=== PATIENT | male | born 1955 | race Caucasian/White ===

== ENCOUNTER 2017-02-28 14:42 | Inpatient (IN) | payer MEDICARE, OTHER ==
[2017-02-28 16:11] LABS: Hematocrit 36 % (42-52); Hemoglobin 12.1 g/dl (14.0-18.0); Mean Corpuscular HGB Conc 34 g/dl (31-36); Mean Corpuscular Hemoglobin 31 pg (27-31); Mean Corpuscular Volume 91 fL (80-94); Mean Platelet Volume 8 um3 (7.4-10.4); Red Blood Count 3.98 10^6/ul (4.0-5.4); Red Cell Distribution Width 15 % (10.5-15)
[2017-02-28 16:23] LABS: ALT 22 U/L (7-52); AST 18 U/L (13-39); Albumin 4.1 g/dL (3.2-5.2); Alkaline Phosphatase 67 U/L (34-104); Anion Gap 6 mmol/L (2-11); BUN/Creatinine Ratio 16.2 (8-20); Blood Urea Nitrogen 37 mg/dL (6-24); CO2 Carbon Dioxide 26 mmol/L (22-32); Calcium 9.5 mg/dL (8.6-10.3); Chloride 107 mmol/L (101-111); Creatine Kinase 167 U/L (10-223); EGFR African American 37.6 (>60); EGFR Non-African American 29.2 (>60); Glucose 137 mg/dL (70-100); Potassium 4.8 mmol/L (3.5-5.0); Sodium 139 mmol/L (133-145); Total Protein 7.1 g/dL (6.4-8.9)
[2017-02-28 16:49] LABS: Acetaminophen < 15 mcg/mL; Alcohol < 10 mg/dL (<10); Salicylate < 2.50 mg/dL (<30)
[2017-02-28 17:05] LABS: TSH (Thyroid Stimulating Horm) 0.21 mcIU/mL (0.34-5.60)
[2017-02-28] MEDS ORDERED: HYDROcodone/ACETAMIN 5-325 MG* 1 TAB PO ONE (17:12)
[2017-02-28] MEDS ORDERED: Lithium Carbonate TAB* 300 MG PO SCH (21:00)
[2017-02-28 23:02] LABS: Lithium < 0.10 mmol/L (0.6-1.2)
--- NOTE | 2017-03-01 02:16 | ED ---
Lara Steele Edward, scribed for Mary Watkins MD on 02/28/17 at 1459 . Psychiatric Complaint - HPI Summary HPI Summary: 61 y/o male brought in by the police s/p episode earlier today of homicidal intent. Pt states this episode was a "big misunderstanding." Pt was calling into the pain clinic at [facility] to renew his pain medications. Pt states his sister came in with some dogs and yelled he would shoot you in the head to the dogs while still on the phone with the pain clinic. Pt repeatedly states that he was talking to his dogs and not to the pain clinic. Pt denies overdose attempt, SI or HI now. The pt c/o chronic jovany in the legs, hip, neck and back rated 7-8/ 10. Sx hip surgery. Pt takes Vicadin and Hydrocodone for his pain. - History Of Current Complaint Chief Complaint: EDMentalHealth Hx Obtained From: Patient Onset/Duration: Lasting Hours, Resolved Aggravating Factor(s): Nothing Alleviating Factor(s): Nothing Has Suicidal: Denies: Thoughts Has Homicidal: Denies: Thoughts - Allergies/Home Medications Allergies/Adverse Reactions: Allergies Allergy/AdvReac Type Severity Reaction Status Date / Time No Known Allergies Allergy Verified 01/18/17 13:25 Home Medications: Home Medications Amlodipine Besylate 10 mg PO DAILY 02/28/17 [History Confirmed 02/28/17] Hydrocodone-Acetaminophen [Lorcet Plus 7.5-325 mg] 1 tab PO Q4HR PRN 02/28/17 [ History Confirmed 02/28/17] Hydrocodone/Acetamin 10/325(NF [[place] 10/325 (NF)] 1 tab PO Q4HR PRN 02/28/17 [ History Confirmed 02/28/17] Lisinopril 10 mg PO BEDTIME 02/28/17 [History Confirmed 02/28/17] Purcell Carbonate 600 mg PO DAILY 02/28/17 [History Confirmed 02/28/17] Purcell Carbonate TAB* 300 mg PO BEDTIME 02/28/17 [History Confirmed 02/28/17] Meloxicam(NF) [Mobic(NF)] 7.5 mg PO BID 02/28/17 [History Confirmed 02/28/17] PMH/Surg Hx/FS Hx/Imm Hx Previously Healthy: No Endocrine/Hematology History: Reports: Hx Diabetes - borderline diet Respiratory History: Reports: Hx Pneumonia - [facility] November 2013 Musculoskeletal History: Reports: Hx Arthritis - left hip, Other Musculoskeletal History - diskectomy neck/fusion and bone taken from left hip Sensory History: Reports: Hx Contacts or Glasses Opthamlomology History: Reports: Hx Contacts or Glasses Psychiatric History: Reports: Hx Inpatient Treatment - 28 day, Hx Bipolar Disorder - lithium, Other Psychiatric Issues/Disorders - hx alcoholism - Surgical History Surgery Procedure, Year, and Place: CERVICAL NECK FUSION Infectious Disease History: Yes Infectious Disease History: Denies: Traveled Outside the [place] in Last 30 Days - Social History Alcohol Use: None Alcohol Amount: Quit 25 years ago Substance Use Type: Reports: None Substance Use Comment - Amount & Last Used: hydrocodone Smoking Status (MU): Former Smoker Type: Cigarettes Have You Smoked in the Last Year: No Review of Systems Constitutional: Negative Eyes: Negative ENT: Negative Cardiovascular: Negative Respiratory: Negative Gastrointestinal: Negative Genitourinary: Negative Positive: Arthralgia - chronic pain @ hip, legs, neck and back Skin: Negative Neurological: Negative Psychological: Normal All Other Systems Reviewed And Are Negative: Yes Physical Exam - Summary Physical Exam Summary: Appearance: Well-appearing, no pain distress, Well-nourished Skin: Warm, color reflects adequate perfusion Head: Normal Head/Face Eyes: Conjunctiva clear ENT: Normal Neck: Supple Respiratory: Lungs clear, Normal breath sounds, no respiratory distress Cardio: RRR, No murmur, pulses normal, brisk capillary refill Abdomen: soft, nontender Bowel sounds: present Musculoskeletal: Strength Intact/ ROM intact Neuro: Alert, muscle tone normal, facial symmetry, speech normal, sensory/motor intact Psychological: Normal Triage Information Reviewed: Yes Vital Signs On Initial Exam: Initial Vitals Temp Pulse Resp BP Pulse Ox 98.8 F 114 19 157/76 94 02/28/17 14:46 02/28/17 14:46 02/28/17 14:46 02/28/17 14:46 02/28/17 14:46 Vital Signs Reviewed: Yes Diagnostics - Vital Signs Vital Signs Temp Pulse Resp BP Pulse Ox 02/28/17 14:46 98.8 F 114 19 157/76 94 - Laboratory Lab Results: Lab Results 02/28/17 02/28/17 Range/Units 15:58 15:58 WBC 10.0 (3.5-10.8) 10^3/ul RBC 3.98 L (4.0-5.4) 10^6/ul Hgb 12.1 L (14.0-18.0) g/dl Hct 36 L (42-52) % MCV 91 (80-94) fL MCH 31 (27-31) pg MCHC 34 (31-36) g/dl RDW 15 (10.5-15) % Plt Count 234 (150-450) 10^3/ul MPV 8 (7.4-10.4) um3 Neut % (Auto) 78.5 (38-83) % Lymph % (Auto) 10.4 L (25-47) % [place] % (Auto) 7.3 (1-9) % Eos % (Auto) 2.8 (0-6) % Baso % (Auto) 1.0 (0-2) % Absolute Neuts (auto) 7.9 H (1.5-7.7) 10^3/ul Absolute Lymphs (auto) 1.0 (1.0-4.8) 10^3/ul Absolute Monos (auto) 0.7 (0-0.8) 10^3/ul Absolute Eos (auto) 0.3 (0-0.6) 10^3/ul Absolute Basos (auto) 0.1 (0-0.2) 10^3/ul Absolute Nucleated RBC 0.01 10^3/ul Nucleated RBC % 0.1 Sodium 139 (133-145) mmol/L Potassium 4.8 (3.5-5.0) mmol/L Chloride 107 (101-111) mmol/L Carbon Dioxide 26 (22-32) mmol/L Anion Gap 6 (2-11) mmol/L BUN 37 H (6-24) mg/dL Creatinine 2.29 H (0.67-1.17) mg/dL Est GFR ( Amer) 37.6 (>60) Est GFR (Non-Af Amer) 29.2 (>60) BUN/Creatinine Ratio 16.2 (8-20) Glucose 137 H (70-100) mg/dL Calcium 9.5 (8.6-10.3) mg/dL Total Bilirubin 0.30 (0.2-1.0) mg/dL AST 18 (13-39) U/L ALT 22 (7-52) U/L Alkaline Phosphatase 67 (34-104) U/L Total Creatine Kinase 167 (10-223) U/L Total Protein 7.1 (6.4-8.9) g/dL Albumin 4.1 (3.2-5.2) g/dL Globulin 3.0 (2-4) g/dL Albumin/Globulin Ratio 1.4 (1-3) TSH 0.21 L (0.34-5.60) mcIU/mL Salicylates < 2.50 (<30) mg/dL Acetaminophen < 15 mcg/mL Purcell < 0.10 L (0.6-1.2) mmol/L Serum Alcohol < 10 (<10) mg/dL Result Diagrams: 02/28/17 15:58 02/28/17 15:58 Lab Statement: Any lab studies that have been ordered have been reviewed, and results considered in the medical decision making process. Course/Dx - Course Assessment/Plan: 61 y/o male brought in by the police s/p episode earlier today of homicidal intent. Pt states this episode was a "big misunderstanding." Pt was calling into the pain clinic at [facility] to renew his pain medications. Pt states his sister came in with some dogs and yelled he would shoot you in the head to the dogs while still on the phone with the pain clinic. Pt repeatedly states that he was talking to his dogs and not to the pain clinic. Pt denies overdose attempt, SI or HI now. The pt c/o chronic jovany in the legs, hip, neck and back rated 7-8/10. Sx hip surgery. Pt takes Vicadin and Hydrocodone for his pain. Spoke with Dr. Ramos who requests bloodwork to be done. Pt is medically cleared for MHU. Pt will be signed out to the evening provider pending MHU eval. - Physician Notifications Discussed Care Of Patient With: Fadi Ramos Time Discussed With Above Provider: 15:51 Instructed by Provider To: Other - Wants bloodwork done Discharge - Discharge Plan Condition: Stable Disposition: OTHER Discharge Disposition Comment: Pt will be signed out to Dr. Perdomo pending MHU eval The documentation as recorded by the Lara kumar Edward accurately reflects the service I personally performed and the decisions made by , Mary Watkins MD.
[2017-03-01] MEDS ORDERED: Al Hydrox/Mg Hydrox/Simet LIQ* 30 ML UDC PO PRN (02:26)
[2017-03-01 07:58] VITALS: BP 145/72
[2017-03-01] MEDS ORDERED: Vitamin THERAPEUTIC TAB PO SCH (09:00)
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
--- NOTE | 2017-03-01 22:47 | DS ---
DISCHARGE SUMMARY: DATE OF ADMISSION: 02/28/17 DATE OF DISCHARGE: 03/01/17 DISCHARGE DIAGNOSES: [place] I: Bipolar disorder in full sustained remission, alcohol use disorder in full sustained remission. [place] II: Deferred. [place] III: Hypertension, chronic back and neck pain, degenerative disk disease, history of multiple back and neck surgeries. [place] IV: Moderate primary support stressors. [place] V: At the time of admission was 60 and at the time of discharge was 60. CONDITION AT THE TIME OF DISCHARGE: Stable. The patient is steadfastly denying suicidal or homicidal ideations. He is insisting that this was merely a misunderstanding and that he was overheard screaming at his dogs and not issuing any homicidal threats towards members of the pain clinic. We have spoken with his stepson, Dylan Thao, who validates the patient's account. He denies that the patient any access to firearms and he denies that the patient is of any threat to anyone. The patient presents as euthymic with a bright affect. He has been smiling, laughing, not appearing to be a threat to himself or others and we do not believe that he represents any threat to himself or others at this time. MENTAL STATUS EXAMINATION: The patient is an aging white male wearing eyeglasses. He is dressed in blue patient's scrubs. He is clean, well groomed, calm, cooperative, easy to establish a rapport with. Speech has a normal rate, tone, and volume. Mood is euthymic with a full affect. Thought process is linear and goal directed. Thought content is significant for his desire to leave the hospital. He denies suicidal or homicidal ideations. He denies auditory or visual hallucinations. Insight and judgment are fair given his willingness to follow up with outpatient mental health services. Cognitively, he is awake and alert with what would appear to be an average intellect. DISCHARGE INSTRUCTIONS TO THE PATIENT: A. Medications: He is taking Mobic 7.5 mg p.o. b.i.d., Lorcet 7.5/325 mg every 4 hours as needed for pain, lisinopril 10 mg daily, lithium 600 mg in the morning 300 mg in the evening, amlodipine 10 mg p.o. daily. B. Diet: Regular. C. Activities: As tolerated. The patient is a nonsmoker. There are no laboratory or diagnostic studies pending at the time of discharge. D. Followup care: The patient will follow up within 1 week at the [facility] where he has been enrolled in treatment for several years. HOSPITAL COURSE: Part A: Reason for admission: The patient is a 61-year-old white male with a history of bipolar disorder in [facility] remission who was brought to the hospital by the police on a 9.41 legal status after a phone call with the [facility] in which he allegedly threatened them with homicidal violence. The patient's story is that he was on the phone with the clinic trying to order a refill of his pain medications. At that time, his sister surprised him with an unannounced visit and was greeted at the door by 2 of the patient's dogs which were barking loudly. The patient states that he started screaming at the dogs and threatening to shoot them and this was apparently overheard over the phone by the pain clinic. They were concerned enough to call law enforcement and the patient and his family were quite surprised to be visited by police, who then brought him in custody for a mental health evaluation. The patient denies that he has access to firearms. He denies having any ill towards the pain clinic and states that he likes his providers there. He is embarrassed and feels that this was a misunderstanding. We have spoken with his family and they are extremely upset that he was admitted under these circumstances. They deny that he has any homicidal intent whatsoever or access to firearms. They believe that this admission was unjustified and unwarranted. The patient apparently has been stable on lithium for several decades and he denies any active symptoms of jennifer or depression, psychosis, or anxiety. Part B: Psychiatric treatment rendered: The patient was admitted to the adult behavioral health unit and placed on q.15-minute checks for his own safety. He was safe on all checks, calm, cooperative, social, appearing to socialize with peers, smiling, laughing at times. I was able to meet his blancoon and his stepson's in person and they are advocating still for his discharge. They feel that he is safe and has no means to harm anyone and no intention whatsoever. Under these circumstances, I do not feel comfortable signing the 9.39 paperwork, and therefore, I will be discharging the patient as per his wishes to outpatient care. We were able to contact [facility] and confirmed that he has a followup appointment within the next week. [id number]/[facility] #: [id number] TONJA
== END 2017-03-01 11:15 | disposition home or self-care (01) | DRG 885 ==
LOC: ED 14:42 → BSU 22:12
PROVIDERS: ADMIT Psychiatry & Neurology Psychiatry; ATTEND Psychiatry & Neurology Psychiatry
DX: F31.76 Bipolar disorder, in full remission, most recent episode depressed (principal); E11.9 Type 2 diabetes mellitus without complications; I10 Essential (primary) hypertension; F10.21 Alcohol dependence, in remission; G89.29 Other chronic pain; M54.9 Dorsalgia, unspecified; M54.2 Cervicalgia; Z88.8 Allergy status to other drugs, medicaments and biological substances; M16.12 Unilateral primary osteoarthritis, left hip; Z98.1 Arthrodesis status; Z87.891 Personal history of nicotine dependence; Z81.1 Family history of alcohol abuse and dependence
CPT/HCPCS: 36415; 80053; 80178; 80320; 80329; 82550; 84443; 85025; 99238; A9270-GY; G0480